=== PATIENT | male | born 1965 | race Caucasian/White ===

== ENCOUNTER → 2023-10-28 | Outpatient (CLI) | payer BC | END | disposition home or self-care (01) | LOC: LABPRL 10:30 | PROVIDERS: ATTEND Family Medicine | DX: Z00.00 Encounter for general adult medical examination without abnormal findings | CPT/HCPCS: 83036 ==

== ENCOUNTER → 2024-01-07 | Outpatient (CLI) | payer BC ==
--- NOTE | 2024-01-09 05:25 | MR ---
EXAMINATION TYPE: MR shoulder RT wo con DATE OF EXAM: 01/07/2024 COMPARISON: Bilateral shoulder x-ray December 30, 2023 HISTORY: Right shoulder pain x10 months with difficulty raising arm overhead TECHNIQUE: Multiplanar, multisequence imaging of the right shoulder is performed without contrast. FINDINGS: Rotator Cuff: Mild increased signal surrounding fluid in the infraspinatus tendon into greater degree in the supraspinatus tendon. Heterogeneous appearance of the subscapularis tendon. Rotator cuff musc le bulk is preserved. Acromioclavicular Joint: No significant spurring or narrowing. Mild capsular hypertrophy. Type II ramez nsloping acromion noted. Glenohumeral Joint: Small joint effusion. No significant spurring. Labrum: The labrum appears grossly intact given limitation of non-arthrogram study. Biceps Tendon: The long head of biceps is in normal location within bicipital groove. Bone marrow signal: No focal abnormal marrow signal is appreciated. Other: Fluid signal is present in the subdeltoid/subacromial bursa. IMPRESSION: 1. Tendinosis of the rotator cuff tendons. Findings most prominently involving the supraspinatus tend on. 2. Type II downsloping acromion noted. 3. Mild/moderate subdeltoid/subacromial bursitis. [facility], , 01/09/2024 5:23 AM
== END | disposition home or self-care (01) ==
LOC: RADMRIMAIN 18:44
PROVIDERS: ATTEND Orthopaedic Surgery
DX: M67.813 Other specified disorders of tendon, right shoulder (principal)